=== PATIENT | male | born 1945 | race Caucasian/White ===

== ENCOUNTER 2018-03-04 01:50 | Day surgery (SDC) | payer MEDICARE, OTHER ==
[2016-09-25 15:59] VITALS: Ht 177.8 cm; Wt 83.0 kg
[2018-03-04] VITALS (8 sets, daily range): BP systolic 119–142; BP diastolic 69–85
[~2018-03-04] VITALS: Ht 177.8 cm; Wt 83.0 kg
[~2018-03-04 01:50] MED LIST: ALLO-119 PO; ASPI-1471 PO; ASPI-757 PO; ASPI81TA94 PO; MAGN100T PO; OMEP40CA48 PO; PER PO; TAMS0.4C25 PO; ZINC50TA9 PO; super beta prostate PO
[2018-03-04] MEDS ORDERED: FAMOTIDINE 20 MG TAB PO ONE (05:40)
[2018-03-04] MEDS ORDERED: MIDAZOLAM 2 MG/2 ML VIAL IVP PRN (06:00)
[2018-03-04] MEDS ORDERED: LIDOCAINE/SOD BICARB 8.4% SYR ID ONE (06:00)
[2018-03-04] MEDS ORDERED: NORMOSOL R SOLN(*) 1000 ML BAG 1,000 ML IV PRN (06:00)
[2018-03-04] MEDS ORDERED: ceFAZolin(*) 2GM/D5W 50ML 50 ML IVPB ONE (06:00)
[2018-03-04] MEDS ORDERED: CELECOXIB 200 MG CAP PO ONE (06:00)
[2018-03-04] MEDS ORDERED: fentaNYL CITR 100 MCG/2 ML AMP ONE ×3 (06:21→09:04)
[2018-03-04] MEDS ORDERED: PROPOFOL EMUL(*) 10MG/ML 20 ML 20 ML ONE (06:21)
[2018-03-04] MEDS ORDERED: ONDANSETRON 4 MG/2 ML VIAL ONE (06:21)
[2018-03-04] MEDS ORDERED: DEXAMETHASONE SOD 4 MG/ML VIAL ONE (06:21)
[2018-03-04] MEDS ORDERED: LIDOCAINE MPF 1% 5 ML VIAL ONE (06:21)
[2018-03-04] MEDS ORDERED: ROPIVACAINE 0.2% 20 ML VIAL ONE (06:22)
[2018-03-04] MEDS ORDERED: KETAMINE HCL 200 MG/20 ML MDV ONE (06:48)
[2018-03-04] MEDS ORDERED: NS 0.9% 20 ML SDV 20 ML ONE (06:52)
[2018-03-04] MEDS ORDERED: HYDR-653 PO (08:47)
[2018-03-04] MEDS ORDERED: APAP/HYDROCODONE 325/5 TAB ONE (09:29)
[2018-03-04] MEDS ORDERED: KETOROLAC 30 MG/ML VIAL ONE (11:20)
--- NOTE | 2018-03-04 11:47 | OPERATIVE REPORT 1 ---
EVENT DATE: March 04, 2018 SURGEON: Dion Grande MD ANESTHESIOLOGIST: Rikki Coppola MD ANESTHESIA: General LMA. HOSPITAL INTERN: Nurse. 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 PROCEDURE PERFORMED 1. Left wrist proximal row carpectomy including all bones of the proximal row, which is CPT 89507. 2. Radial styloidectomy, 37947. 3. Neuroplasty at the dorsal aspect of the carpal tunnel, 49595. 4. Hemiarthroplasty with a prosthetic joint replacement of the lunate, CPT 89201 FINDINGS The patient had significant arthritis associated with the wrist itself and collapse of the carpal proximal row. He also had some irritation and problems associated with the capitate and so therefore we decided to do a proximal row carpectomy, radial styloidectomy and a capitate resurfacing associated with this and it did look better and move better afterwards. ESTIMATED BLOOD LOSS Minimal. DRAINS None. COMPLICATIONS None. IMPLANTS USED Arthrosurface capitate replacement, 7.5 mm taper post with a 15 mm capitate component which was 35 x 17. SPECIMENS None. TOURNIQUET TIME About 90 minutes. INDICATIONS AND HISTORY This patient is a 72-year-old male that presented to my clinic for evaluation of left wrist pain and irritation going on for some. He continued to have pain and irritation despite conservative management and a significant amount of arthritic changes and stiffness. I talked to him about treatment options associated with this. He wanted to go ahead with a wrist proximal row carpectomy and a capitate resurfacing to replace the lunate. We talked about the implications of this as well as treatment options. He said this is probably best for him rather than four-corner fusion as he had a significant amount of arthritic changes associated with the lunate and a wrist fusion as he wanted to maintain some motion. After discussion of the risks and benefits, informed consent was obtained. We told him there was no guarantee that it makes him better and he may end up with a fusion at a later time and he stated he understands that. DESCRIPTION OF PROCEDURE The patient was into the operating room. He and the procedure were both verified. He was placed supine on the operating table and induced intubated by Anesthesia. The left upper extremity was then prepped and draped in the usual fashion and a time-out was observed, verifying the correct patient and procedure. The standard incision was made over the dorsal aspect of the wrist. It was taken through the skin and subcutaneous tissue until I got down to the distal radius and identified the first dorsal compartment. I went through the first dorsal compartment and was able to then move the extensor tendons to the side and then go through the capsule of the dorsal aspect of the wrist. Once I was able to remove some of the capsule and then perform the neurotomy in this area in order to get some postoperative pain control, I then was able to get down to the lunate itself and then to the triquetrum. I was then able to remove the triquetrum first as this had the most prominent aspect. There were also some loose fragments in this area, which were removed, and then I was able to remove the lunate in mass and then I cut all the ligaments associated with the lunate itself but maintained the capitate and the hamate relationship. This is when there was noted to be a significant amount of arthritic changes into the capitate and so, therefore, this is when we chose to do resurfacing. I then switched sides of the table and was able to remove a little bit of the radial styloid and also the entire aspect of the scaphoid. Once I was able to remove the entire aspect of the scaphoid, I then better access associated with the capitate and was able to flex the wrist in order to do the capitate resurfacing. This was done with the Arthrosurface, where I was able to drill a guide pin straight down the middle portion of the capitate, verified this on C-arm images. We then were able to drill and then tap and put in the solid screw. Once the solid screw was in good position and through the middle portion of the capitate, I then was able to ream both proximally and dorsally in order to make it amenable for the prosthesis. We measured the lunate fossa to be about 35 x 17 and so, therefore, we took a 15 mm capitate component x 35 x 17, put in the trial component, moved it in general directions and then also took C-arm images and verified that it looked very good and had good spacing associated with this and general overall movement and was stable within the lunate fossa. I then irrigated with a copious amount of saline, put in the final component on the end of the capitate with resurfacing. This was then followed by irrigation again with copious amount of saline, put it through range of motion once again and took final C-arm images and then closed the capsule using 4-0 FiberWire and followed by 4-0 FiberWire in the extensor retinaculum. I irrigated again and closed the skin with 3-0 Vicryl and the subcutaneous tissue and subcuticular with 4-0 running Monocryl. The wound was dressed with Steri-strips, gauze, 4x4's and a soft dressing after we anesthetized with ropivacaine and then we put him in a volar and dorsal splint and then the tourniquet was let down after about 90 minutes. The patient was awakened, extubated and transferred to PACU in stable condition. GIORGIO
== END 2018-03-04 09:39 | disposition home or self-care (01) ==
LOC: OR 01:50
PROVIDERS: ATTEND Orthopaedic Surgery
DX: M13.832 Other specified arthritis, left wrist (principal)
CPT/HCPCS: 25444; A9270; J1100; J1885; J2001; J2405; J2704; J2795; J3010; J3490; J7050; J0690